=== PATIENT | male | born 1960 | race Caucasian/White ===

== ENCOUNTER 2021-07-20 11:32 | Day surgery (SDC) | payer MEDICAID ==
[2021-07-20] VITALS (9 sets, daily range): BP systolic 135–168; BP diastolic 84–108
[~2021-07-20] VITALS: Ht 188 cm; Wt 92.3 kg
[2021-07-20] MEDS ORDERED: nitroGLYCERIN 0.4mg SUBLingual tab SL PRN (11:55)
[2021-07-20] MEDS ORDERED: diphenhydrAMINE 25mg capsule PO PRN (12:00)
[2021-07-20] MEDS ORDERED: normal saline 1,000 ML IV SCH (12:00)
[2021-07-20] MEDS ORDERED: LORazepam 0.5 MG tablet PO PRN (12:00)
[2021-07-20] MEDS ORDERED: IBUP-1986 PO (12:39)
[2021-07-20] MEDS ORDERED: Vitamin B12 (12:39)
[2021-07-20] MEDS ORDERED: SILD100T70 PO (12:39)
[2021-07-20] MEDS ORDERED: GEMF600T89 PO (12:39)
[2021-07-20] MEDS ORDERED: DILT120T3 PO (12:39)
[2021-07-20] MEDS ORDERED: METF-1203 PO (12:39)
[2021-07-20] MEDS ORDERED: insulin Lispro (HumaLOG) vial - multi-dose SQ SCH (13:15)
[2021-07-20] MEDS ORDERED: MESSAGE TO PHARMACY PO ONE (13:15)
[2021-07-20] MEDS ORDERED: DEXTROSE 15 GM of carb/4 tabs (each vial/BOTTLE has 4 tablets) PO PRN ×2 (13:15)
[2021-07-20] MEDS ORDERED: dextrose 50%-water 50ml dispensing syringe IV PRN ×2 (13:15)
[2021-07-20] MEDS ORDERED: glucagon, human recombinant 1mg kit SUBCUT PRN (13:15)
[2021-07-20] MEDS ORDERED: iohexol 350MG/ML 100ml bottle IV ONE (14:31)
[2021-07-20] MEDS ORDERED: iohexol 350 MG/ML 50ML vial IV ONE (14:31)
[2021-07-20] MEDS ORDERED: fentaNYL/PF 50MCG/1 ML 2ML syringe ONE (14:31)
[2021-07-20] MEDS ORDERED: LIDOcaine 1% (10mg/ml)w/preservative inj. 20ml MDV ONE (14:31)
[2021-07-20] MEDS ORDERED: midazolam 1 mg/ML 2ml injection ONE ×2 (14:31→15:18)
[2021-07-20] MEDS ORDERED: insulin glargine (Lantus) pen - multi-dose SQ SCH (21:00)
== END 2021-07-20 20:55 | disposition home or self-care (01) ==
LOC: SSTAY O 11:32
PROVIDERS: ATTEND Internal Medicine Cardiovascular Disease
DX: R94.39 Abnormal result of other cardiovascular function study (principal); I25.10 Atherosclerotic heart disease of native coronary artery without angina pectoris; I10 Essential (primary) hypertension; E11.9 Type 2 diabetes mellitus without complications; M54.30 Sciatica, unspecified side; J44.9 Chronic obstructive pulmonary disease, unspecified; Z86.16 Personal history of COVID-19; Z79.899 Other long term (current) drug therapy; Z79.84 Long term (current) use of oral hypoglycemic drugs; Z88.2 Allergy status to sulfonamides
CPT/HCPCS: 82948; 93005; 93458; 99152; C1760; C1769; J1644; J1815; J2250; J3010; J3490; Q0163; Q9967; 99153; A4620; A6258

== ENCOUNTER 2021-08-01 05:30 | Inpatient (IN) | payer MEDICAID ==
[2021-07-27 13:39] LABS: BASOPHILS % (AUTO) 0.6 % (0-1); EOSINOPHILS # (AUTO) 0.1 X10'3 (0-0.9); EOSINOPHILS % (AUTO) 0.7 % (0-6); LYMPHOCYTES # (AUTO) 1.1 X10'3 (1.1-4.8); LYMPHOCYTES % (AUTO) 15.8 % (21-51); MEAN CORPUSCULAR HEMOGLOBIN 32.4 PG (27.0-31.0); MEAN CORPUSCULAR HGB CONC 34.2 g/dL (33.0-36.5); MEAN CORPUSCULAR VOLUME 94.8 FL (78-98); MEAN PLATELET VOLUME 7.7 FL (7.4-10.4); MONOCYTES # (AUTO) 0.7 X10'3 (0-0.9); MONOCYTES % (AUTO) 9.2 % (2-12); NEUTROPHILS # (AUTO) 5.3 X10'3 (1.8-7.7); NEUTROPHILS % (AUTO) 73.7 % (42-75); PRE OP HEMATOCRIT 47.5 % (42.0-52.0); PRE OP HEMOGLOBIN 16.3 g/dL (14.0-17.9); PRE OP PLATELET COUNT 307 X10'3 (140-440); RED BLOOD COUNT 5.01 X10'6 (4.70-6.10); RED CELL DISTRIBUTION WIDTH 13.9 % (11.5-14.5)
[2021-07-27 13:47] LABS: CLARITY,URINE CLEAR (Clear); COLOR,URINE YELLOW (Yellow); GLUCOSE, URINE NEGATIVE (Neg); KETONES,URINE TRACE mg/dl (Neg); LEUKOCYTE ESTERASE ,URINE NEGATIVE (Neg); NITRITES, URINE NEGATIVE (Neg); OCCULT BLOOD,URINE NEGATIVE (Neg); PROTEIN,URINE TRACE mg/dl (Neg); UROBILINOGEN,URINE 0.2 E.U/dL (0.2-1.0)
[2021-07-27 13:48] LABS: UA COLLECTION TYPE CLN CATCH MIDSTREAM
[2021-07-27 13:53] LABS: PRE OP PROTIME 10.4 SECONDS (9.0-12.0)
[2021-07-27 13:54] LABS: HYALINE CASTS 0-3 /LPF (NEGATIVE); SQUAMOUS EPITHELIAL CELL,UR FEW /LPF (FEW)
[2021-07-27 13:55] LABS: BACTERIA,URINE FEW /HPF (Neg); RBC,URINE 0-2 /HPF (0-2); WBC,URINE 0-4 /HPF (0-4)
[2021-07-27 13:59] LABS: ALBUMIN 3.8 G/DL (3.4-5.0); ALKALINE PHOSPHATASE 87 IU/L (46-116); BLOOD UREA NITROGEN 11 MG/DL (7-18); CALCIUM 9.8 MG/DL (8.5-10.1); CHLORIDE 100 MMOL/L (99-107); PRE OP ALT 43 U/L (30-65); PRE OP ANION GAP 15 (8-16); PRE OP AST 24 U/L (10-37); PRE OP BILIRUB, TOTAL 0.5 MG/DL (0.0-1.0); PRE OP GLUCOSE 161 MG/DL (70-104); PRE OP POTASSIUM 3.6 MMOL/L (3.4-5.1); PRE OP SODIUM 135 MMOL/L (135-145); TOTAL CARBON DIOXIDE 20.2 MMOL/L (24-32); TOTAL PROTEIN 7.7 G/DL (6.4-8.2); eGFR 76 ML/MIN
[2021-07-27 17:16] LABS: HEMOGLOBIN A1C 6.9 % (4.5-6.2)
[2021-07-29 09:55] LABS: ABG BASE EXCESS -3.1 mmol/L (-2.0-2.0); ABG HCO3 19.5 mmol/L (22.0-26.0); ABG OXYGEN SATURATION 96.3 % (94-97); ABG PCO2 (T) 29.7 mmHg (35.0-48.0); ABG PO2 (T) 78.2 mmHg (75.0-100.0); ALLEN'S TEST POSITIVE; FMetHb 0.2 % (0.0-1.5); FO2Hb 95.1 % (94-97)
[~2021-08-01] VITALS: Ht 188 cm; Wt 92.2 kg
[2021-08-01] VITALS (21 sets, daily range): BP systolic 103–190; BP diastolic 61–105
[~2021-08-01 05:30] MED LIST: DILT120T3 PO; GEMF600T89 PO; IBUP-1986 PO; LORazepam 2 mg/ml vial IV PRN; METF-1203 PO; SILD100T70 PO; Vitamin B12; cefazolin/dext.iso 2gm/50ml IV ONE; famotidine 20mg tablet PO ONE; mupirocin 2% nasal ointment 1gm UD NS ONE; ringers solution, lacted 1,000 ML IV SCH; vancomycin 1,500 MG in NS 300ml IV soln IV ONE
[2021-08-01] MEDS: insulin regular, human inj. 100 UNITS in normal saline 100ml IV IV SCH ×2 (05:30→12:39)
[2021-08-01] MEDS ORDERED: ceFAZolin 1000mg inj ONE ×2 (05:43)
[2021-08-01] MEDS ORDERED: epiNEPHrine 1 mg/ml inj ONE (05:43)
--- NOTE | 2021-08-01 06:00 | NUR ---
PATIENT PREPPED FOR SURGERY, ANXIOUS, NO FAMILY MEMBERS WITH PATIENT. 16 G IV STARTED IN LEFT HAND WITHOUT DIFFICULTY. PATIENT SHAVED IN THE NORMAL FASHION BY JESS DATA COMPILER. 2 LARGE CIRCULAR WOUNDS NOTED ON LEFT KNEE AREA AND 2 ABRASIONS NOTED ON LEFT HAND. PT STATES HE GOT THESES FROM A FALL. PT NEEDS TO HAVE BACK SURGERY AND IS OFF BALANCE AT TIMES, WANTEN HEART PROCEDURE COMPLETED FIRST PRIOR TO BACK SURGERY. PT INSTRUCTED TO NOTIFY RN IF HE NEEDED TO GET UP TO THE BATHROOM PRIOR TO SURGERY
[2021-08-01] MEDS ORDERED: heparin 1,000 units/ml 10ml inj ONE (07:38)
[2021-08-01] MEDS ORDERED: nitroGLYCERIN in D5W 50mg/250ml (Tridil) infusion IV ONE (07:38)
[2021-08-01] MEDS ORDERED: sevoflurane 250ml liquid IH ONE (07:38)
[2021-08-01] MEDS ORDERED: protamine sulf. 10mg/ml inj. IV ONE (07:38)
[2021-08-01] MEDS ORDERED: aminocaproic acid 250 MG/1 ML inj. ONE (07:38)
[2021-08-01] MEDS ORDERED: NORepinephrine 8 MG in NS 250 ML BAG (32 mcg/ml) IV ONE (07:38)
[2021-08-01] MEDS ORDERED: MIDAZolam 1 MG/ML 5ML VIAL ONE (07:43)
[2021-08-01] MEDS ORDERED: SUFENTANIL CITRATE 50 MCG/ML 2ml ampule IV ONE (07:43)
[2021-08-01] MEDS ORDERED: heparin 10,000 units/1 ML INJ ONE ×3 (08:00)
[2021-08-01] MEDS ORDERED: methylPREDNISolone sod succ 1000mg vial ONE (08:00)
[2021-08-01] MEDS ORDERED: papaverine 30 mg/ml 2ml inj. ONE ×2 (08:00)
[2021-08-01] MEDS ORDERED: heparin 10,000 units/1 ML INJ IR ONE (08:00)
[2021-08-01] MEDS ORDERED: papaverine 30 mg/ml 2ml inj. IA ONE (08:00)
[2021-08-01 08:29] LABS: ABG BASE EXCESS -0.7 mmol/L (-2.0-2.0); ABG PO2 386.6 mmHg (75.0-100.0); CL (ABG) 103 mmol/L (98-110); FCOHb 0.9 % (0.0-3.9); FO2Hb 99.1 % (94-97); GLUCOSE (ABG) 174 mg/dl (70-105); IONIZED CA (ABG) 1.19 mmol/L (1.10-1.43); K (ABG) 3.3 mmol/L (3.5-5.0); TOTAL HEMOGLOBIN 14.3 G/dl (14.0-18.0)
[2021-08-01 09:01] LABS: ABG BASE EXCESS -2.9 mmol/L (-2.0-2.0); ABG HCO3 24.9 mmol/L (22.0-26.0); ABG OXYGEN SATURATION 89.8 % (94-97); ABG PO2 63.9 mmHg (75.0-100.0); CL (ABG) 103 mmol/L (98-110); FCOHb 0.8 % (0.0-3.9); FO2Hb 89.1 % (94-97); GLUCOSE (ABG) 149 mg/dl (70-105); IONIZED CA (ABG) 1.15 mmol/L (1.10-1.43); K (ABG) 3.3 mmol/L (3.5-5.0); TOTAL HEMOGLOBIN 13.8 G/dl (14.0-18.0)
[2021-08-01 09:03] LABS: ABG BASE EXCESS -2.9 mmol/L (-2.0-2.0); ABG HCO3 24.9 mmol/L (22.0-26.0); ABG OXYGEN SATURATION 89.8 % (94-97); ABG PO2 63.9 mmHg (75.0-100.0); CL (ABG) 103 mmol/L (98-110); FCOHb 0.8 % (0.0-3.9); FO2Hb 89.1 % (94-97); GLUCOSE (ABG) 149 mg/dl (70-105); IONIZED CA (ABG) 1.15 mmol/L (1.10-1.43); K (ABG) 3.3 mmol/L (3.5-5.0); TOTAL HEMOGLOBIN 13.8 G/dl (14.0-18.0)
[2021-08-01 09:48] LABS: ABG BASE EXCESS VENOUS -2.4 mmol/L (-2.0 - 2.0); ABG HCO3 VENOUS 23.6 mmol/L (21.0-28.0); ABG PCO2 VENOUS 45.4 mmHg (41.0-54.0); ABG PO2 VENOUS 58.9 mmHg (25.0-35.0); CL (ABG) 106 mmol/L (98-110); FCOHb VENOUS 0.4 %; FHHb VENOUS 11.4 %; FMetHb VENOUS 0.3 % (0.0 - 0.5); FO2Hb VENOUS 87.9 %; GLUCOSE (ABG) 129 mg/dl (70-105); IONIZED CA (ABG) 1.13 mmol/L (1.10-1.43); K (ABG) 3.2 mmol/L (3.5-5.0); TOTAL HEMOGLOBIN 12.7 G/dl (14.0-18.0)
[2021-08-01] MEDS ORDERED: mineral oil 133ml enema RC PRN (10:00)
[2021-08-01] MEDS ORDERED: magnesium hydroxide 30ml (MOM) UD suspension PO PRN (10:00)
[2021-08-01] MEDS ORDERED: acetaminophen 325mg tablet PO PRN ×2 (10:00)
[2021-08-01] MEDS ORDERED: Insulin Reg/NS 100units/100mL 100 ML IV SCH (10:00)
[2021-08-01] MEDS ORDERED: sodium chloride 0.45% 1,000 ML IV SCH (10:00)
[2021-08-01] MEDS ORDERED: magnesium citrate 296ml oral solution PO PRN (10:00)
[2021-08-01] MEDS ORDERED: metoclopramide 5 mg/ml inj IV PRN (10:00)
[2021-08-01] MEDS ORDERED: morphine 4 MG/ML inj SYRINge IV PRN (10:00)
[2021-08-01] MEDS ORDERED: sodium phosphate inj. 15 MMOL in dextrose 5%-water 250 ML IV PRN (10:00)
[2021-08-01] MEDS ORDERED: nitroGLYCERIN-Tridil 50MG/D5W 250 ML IV SCH (10:00)
[2021-08-01] MEDS ORDERED: dextrose 50%-water 50ml dispensing syringe IV PRN (10:00)
[2021-08-01] MEDS ORDERED: sodium phosphate inj. 30 MMOL in dextrose 5%-water 250 ML IV PRN (10:00)
[2021-08-01] MEDS ORDERED: magnesium 4gm in 100ml NS 100 ML IV PRN (10:00)
[2021-08-01] MEDS ORDERED: niCARDipine-NS 40mg/200ml IVPB 200 ML IV PRN (10:00)
[2021-08-01] MEDS ORDERED: HYDROcodone/acetaminophen 10/325mg tab PO PRN (10:00)
[2021-08-01] MEDS ORDERED: bisacodyl 10mg suppository rectal RC PRN (10:00)
[2021-08-01] MEDS ORDERED: potassium CL 10mEq/100ml bag 100 ML IV PRN (10:00)
[2021-08-01] MEDS ORDERED: insulin glargine (Lantus) pen - multi-dose SQ PRN (10:00)
[2021-08-01] MEDS ORDERED: ondansetron/PF 4mg/2ml inj IV PRN (10:00)
[2021-08-01] MEDS ORDERED: Neutra Phos packet PO PRN (10:00)
[2021-08-01 10:09] LABS: ACTIVATED CLOTTING TIME 128 SEC (101-148)
[2021-08-01] MEDS ORDERED: metoprolol tartrate 1mg/ml inj IV ONE (10:30)
[2021-08-01] MEDS ORDERED: rocuronium 10mg/ml inj IV ONE ×3 (10:32)
[2021-08-01] MEDS ORDERED: propofol inj 20 ML IV ONE (10:32)
[2021-08-01 10:41] LABS: ACT @ 1.70 U 249 SEC (193-297); ACT @ 2.84 U 353 SEC (260-420); BASELINE ACT 144 SEC (101-148); PATIENT WEIGHT 91.0k KG
[2021-08-01 10:45] LABS: ABG BASE EXCESS -3.4 mmol/L (-2.0-2.0); ABG HCO3 21.6 mmol/L (22.0-26.0); ABG PCO2 (T) 34.2 mmHg (35.0-48.0); ABG PO2 (T) 206.1 mmHg (75.0-100.0); FCOHb 0.3 % (0.0-3.9); FMetHb 0.5 % (0.0-1.5); FO2Hb 98.2 % (94-97); PATIENT TEMPERATURE 34.2; PEEP 5 cm H2O; RESPIRATORY RATE 12 b/min; TIDAL VOLUME 600 mL; TOTAL HEMOGLOBIN 13.3 G/dl (14.0-18.0)
[2021-08-01 10:49] LABS: BASOPHILS % (AUTO) 0.4 % (0-1); EOSINOPHILS # (AUTO) 0.2 X10'3 (0-0.9); EOSINOPHILS % (AUTO) 2.1 % (0-6); HEMATOCRIT 36.3 % (42.0-52.0); HEMOGLOBIN 12.7 g/dl (14.0-17.9); LYMPHOCYTES # (AUTO) 1.3 X10'3 (1.1-4.8); LYMPHOCYTES % (AUTO) 17.2 % (21-51); MEAN CORPUSCULAR HEMOGLOBIN 33.6 PG (27.0-31.0); MEAN CORPUSCULAR VOLUME 95.9 FL (78-98); MEAN PLATELET VOLUME 7.3 FL (7.4-10.4); MONOCYTES # (AUTO) 0.3 X10'3 (0-0.9); MONOCYTES % (AUTO) 4.4 % (2-12); NEUTROPHILS # (AUTO) 5.8 X10'3 (1.8-7.7); NEUTROPHILS % (AUTO) 75.9 % (42-75); PLATELET COUNT 199 X10'3 (140-440); RED BLOOD COUNT 3.79 X10'6 (4.70-6.10); WHITE BLOOD COUNT 7.7 X10'3 (4.5-11.0)
[2021-08-01 10:57] LABS: APTT 26 SECONDS (22-32)
[2021-08-01 11:00] LABS: ALANINE AMINOTRANSFERASE 36 U/L (12-78); ALBUMIN 3.1 G/DL (3.4-5.0); ALBUMIN/GLOBULIN RATIO 1.2 (1.1-1.5); ALKALINE PHOSPHATASE 54 IU/L (46-116); ANION GAP 11 (8-16); ASPARTATE AMINO TRANSFERASE 21 U/L (10-37); BILIRUBIN,TOTAL 0.4 MG/DL (0.1-1.0); BLOOD UREA NITROGEN 8 MG/DL (7-18); BUN/CREATININE RATIO 12.5 (5.4-32.0); CALCIUM 7.9 MG/DL (8.5-10.1); CHLORIDE 106 MMOL/L (99-107); CREATININE 0.64 MG/DL (0.60-1.10); GLUCOSE 130 MG/DL (70-104); MAGNESIUM 1.7 MG/DL (1.5-2.4); PHOSPHORUS 3.7 MG/DL (2.3-4.5); SODIUM 141 MMOL/L (135-145); TOTAL CARBON DIOXIDE 23.9 MMOL/L (24-32); TOTAL PROTEIN 5.6 G/DL (6.4-8.2); eGFR > 90 ML/MIN
[2021-08-01 11:02] LABS: POTASSIUM 2.9 MMOL/L (3.5-5.1)
[2021-08-01] MEDS: potassium Cl 20mEq/100mL bag 100 ML IV PRN ×6 (11:12→19:00)
[2021-08-01] MEDS: gabapentin 300mg capsule PO SCH ×2 (11:56→20:48)
[2021-08-01 12:06] LABS: ABG BASE EXCESS -4.4 mmol/L (-2.0-2.0); ABG HCO3 21.2 mmol/L (22.0-26.0); ABG OXYGEN SATURATION 97.7 % (94-97); ABG PCO2 (T) 37.2 mmHg (35.0-48.0); ABG PO2 (T) 100.3 mmHg (75.0-100.0); FCOHb 0.4 % (0.0-3.9); FMetHb 0.2 % (0.0-1.5); FO2Hb 97.1 % (94-97); PATIENT TEMPERATURE 34.8; PEEP 5 cm H2O; TIDAL VOLUME 654 mL; TOTAL HEMOGLOBIN 13.7 G/dl (14.0-18.0)
[2021-08-01] MEDS: albumin (Human) 5% 250ml 250 ML IV PRN (12:11)
[2021-08-01] MEDS: morphine 2 MG/ML inj. syringe IV PRN ×2 (12:24→18:00)
[2021-08-01] MEDS: ketorolac tromethamine 15mg/ml inj. IV SCH ×2 (14:12→20:47)
[2021-08-01] MEDS: magnesium 2GM in 50ml NS 50 ML IV PRN (14:51)
[2021-08-01] MEDS: ceFAZolin/D5W- 1GM premix 50 ML IV SCH ×2 (15:22→23:58)
[2021-08-01 17:13] LABS: BASOPHILS % (AUTO) 0.2 % (0-1); EOSINOPHILS % (AUTO) 0 % (0-6); HEMATOCRIT 34.9 % (42.0-52.0); HEMOGLOBIN 12.3 g/dl (14.0-17.9); LYMPHOCYTES # (AUTO) 0.6 X10'3 (1.1-4.8); LYMPHOCYTES % (AUTO) 6.3 % (21-51); MEAN CORPUSCULAR HEMOGLOBIN 33.8 PG (27.0-31.0); MEAN CORPUSCULAR HGB CONC 35.1 g/dL (33.0-36.5); MEAN CORPUSCULAR VOLUME 96.3 FL (78-98); MEAN PLATELET VOLUME 7.3 FL (7.4-10.4); MONOCYTES # (AUTO) 0.7 X10'3 (0-0.9); MONOCYTES % (AUTO) 6.8 % (2-12); NEUTROPHILS # (AUTO) 8.6 X10'3 (1.8-7.7); NEUTROPHILS % (AUTO) 86.7 % (42-75); PLATELET COUNT 227 X10'3 (140-440); RED BLOOD COUNT 3.62 X10'6 (4.70-6.10); RED CELL DISTRIBUTION WIDTH 13.9 % (11.5-14.5); WHITE BLOOD COUNT 9.9 X10'3 (4.5-11.0)
[2021-08-01 17:26] LABS: ALBUMIN 3.5 G/DL (3.4-5.0); ANION GAP 6 (8-16); BLOOD UREA NITROGEN 5 MG/DL (7-18); BUN/CREATININE RATIO 8.3 (5.4-32.0); CALCIUM 7.6 MG/DL (8.5-10.1); CHLORIDE 106 MMOL/L (99-107); GLUCOSE 116 MG/DL (70-104); MAGNESIUM 2.8 MG/DL (1.5-2.4); POTASSIUM 3.9 MMOL/L (3.5-5.1); SODIUM 136 MMOL/L (135-145); TOTAL CARBON DIOXIDE 24.1 MMOL/L (24-32); eGFR > 90 ML/MIN
--- NOTE | 2021-08-01 18:17 | NUR ---
Problems reprioritized. Patient report given, questions answered & plan of care reviewed with Jaclyn GALICIA.
--- NOTE | 2021-08-01 18:30 | NUR ---
Patient in room ICU 2042. Myself and Nadja GALICIA have received report from Jackie GALICIA and had the opportunity to ask questions and assume patient care.
--- NOTE | 2021-08-01 19:43 | NUR ---
Radial arterial line dislodged by patient. Pressure dressing applied after hemostasis achieved via manual hold per protocol. Patient awake and alert, able to move all extremities, denies pain or numbness in R hand. See chart for hemodynamics and output. Will continue to monitor.
[2021-08-01] MEDS: vancomycin/NS 1 GM ADD-VANTAGE 250 ML IV SCH (20:47)
[2021-08-01] MEDS: mupirocin 2% nasal ointment 1gm UD NS SCH (20:48)
[2021-08-01] MEDS: sennosides/docusate sodium tablet PO SCH (20:48)
[2021-08-01] MEDS: atorvastatin 10mg tablet PO SCH (20:48)
[2021-08-01] MEDS: HYDROcodone/acetaminophen 10/325mg tab PO PRN (23:38)
[2021-08-02] VITALS (24 sets, daily range): BP systolic 94–160; BP diastolic 55–95
[2021-08-02] MEDS: ketorolac tromethamine 15mg/ml inj. IV SCH ×2 (01:57→08:37)
[2021-08-02 02:33] LABS: BASOPHILS % (AUTO) 0.2 % (0-1); EOSINOPHILS % (AUTO) 0.5 % (0-6); HEMOGLOBIN 11.6 g/dl (14.0-17.9); LYMPHOCYTES # (AUTO) 0.9 X10'3 (1.1-4.8); LYMPHOCYTES % (AUTO) 15.2 % (21-51); MEAN CORPUSCULAR HEMOGLOBIN 32.8 PG (27.0-31.0); MEAN CORPUSCULAR HGB CONC 34.2 g/dL (33.0-36.5); MEAN CORPUSCULAR VOLUME 96.1 FL (78-98); MEAN PLATELET VOLUME 7.5 FL (7.4-10.4); MONOCYTES # (AUTO) 0.4 X10'3 (0-0.9); MONOCYTES % (AUTO) 7.8 % (2-12); NEUTROPHILS # (AUTO) 4.3 X10'3 (1.8-7.7); NEUTROPHILS % (AUTO) 76.3 % (42-75); PLATELET COUNT 203 X10'3 (140-440); RED BLOOD COUNT 3.54 X10'6 (4.70-6.10); RED CELL DISTRIBUTION WIDTH 13.7 % (11.5-14.5); WHITE BLOOD COUNT 5.6 X10'3 (4.5-11.0)
[2021-08-02] MEDS: albumin (Human) 5% 250ml 250 ML IV PRN ×2 (02:33→03:32)
[2021-08-02 02:48] LABS: ALANINE AMINOTRANSFERASE 39 U/L (12-78); ALBUMIN 3.1 G/DL (3.4-5.0); ALBUMIN/GLOBULIN RATIO 1.2 (1.1-1.5); ALKALINE PHOSPHATASE 54 IU/L (46-116); ANION GAP 9 (8-16); ASPARTATE AMINO TRANSFERASE 28 U/L (10-37); BILIRUBIN,TOTAL 0.4 MG/DL (0.1-1.0); BLOOD UREA NITROGEN 5 MG/DL (7-18); BUN/CREATININE RATIO 6.8 (5.4-32.0); CALCIUM 7.9 MG/DL (8.5-10.1); CHLORIDE 102 MMOL/L (99-107); CREATININE 0.74 MG/DL (0.60-1.10); GLUCOSE 123 MG/DL (70-104); PHOSPHORUS 2.2 MG/DL (2.3-4.5); POTASSIUM 3.6 MMOL/L (3.5-5.1); SODIUM 136 MMOL/L (135-145); TOTAL CARBON DIOXIDE 25.2 MMOL/L (24-32); TOTAL PROTEIN 5.6 G/DL (6.4-8.2); eGFR > 90 ML/MIN
[2021-08-02 03:06] LABS: MAGNESIUM 2.4 MG/DL (1.5-2.4)
--- NOTE | 2021-08-02 03:30 | NUR ---
patients blood sugar 65, D50 given per protocol and rechecked in 15 minutes and it came up to 112
[2021-08-02] MEDS: potassium Cl 20mEq/100mL bag 100 ML IV PRN ×2 (03:32→04:47)
[2021-08-02] MEDS: magnesium 2GM in 50ml NS 50 ML IV PRN ×2 (04:09→23:41)
--- NOTE | 2021-08-02 06:21 | NUR ---
Problems reprioritized. Patient report given, questions answered & plan of care reviewed with Jackie GALICIA. Cristobal documentation: I have reviewed and agree with all interventions, assessments performed and documented by Nadja Lopez Medication Administration: For this medication-pass time frame, all medication were reviewed, dispensed, administered and documented per hospital policy by Nadja GALICIA . .
--- NOTE | 2021-08-02 06:49 | NUR ---
Patient in room ICU 2042. I have received report from Jaclyn GALICIA and Nadja RN and had the opportunity to ask questions and assume patient care.
[2021-08-02] MEDS ORDERED: metoprolol tartrate 12.5mg (1/2 tablet) PO SCH (08:00)
--- NOTE | 2021-08-02 08:00 | NUR ---
Dr. Liriano by to round on patient, ordered to D/C swan and isolate wires, Art line was already D/C on Noc shift 08/01/21 as patient pulled it out. Once line d/C and wires isolated, with assistance of another RN patient was ambulated to chair with no complications. Vital signs remained stable, patient took breakfast sitting in bedside recliner
[2021-08-02] MEDS: vancomycin/NS 1 GM ADD-VANTAGE 250 ML IV SCH ×2 (08:35→20:48)
[2021-08-02] MEDS: ceFAZolin/D5W- 1GM premix 50 ML IV SCH ×3 (08:35→23:30)
[2021-08-02] MEDS: aspirin 325mg tablet, delayed-release (Ecotrin) PO SCH (08:36)
[2021-08-02] MEDS: mupirocin 2% nasal ointment 1gm UD NS SCH ×2 (08:36→20:46)
[2021-08-02] MEDS: sennosides/docusate sodium tablet PO SCH ×2 (08:36→20:47)
[2021-08-02] MEDS: gabapentin 300mg capsule PO SCH ×3 (08:36→20:46)
--- NOTE | 2021-08-02 11:40 | NUR ---
Patients parents bedside to visit, updated on his progress and answered all questions
--- NOTE | 2021-08-02 12:59 | NUR ---
walked patient 600ft vital signs stable tolerated well, back to room and up to chair for lunch.
--- NOTE | 2021-08-02 17:27 | NUR ---
Ambulated patient with assistance of ICU Aide, Chest tubes and asencio secured. Patient placed on portable monitor, frontwheel waker used for stability. We made two full laps around the ICU, no complaints of chest pain or shortness of breath
[2021-08-02] MEDS ORDERED: metoprolol tartrate 1mg/ml inj IV ONE (17:50)
--- NOTE | 2021-08-02 18:15 | NUR ---
Problems reprioritized. Patient report given, questions answered & plan of care reviewed with Jaclyn GALICIA and Nadja GALICIA.
--- NOTE | 2021-08-02 18:17 | NUR ---
Patient in room ICU 2042. I have received report from Jackie GALICIA with Jaclyn GALICIA and had the opportunity to ask questions and assume patient care.
--- NOTE | 2021-08-02 19:30 | NUR ---
patient ambulated with front wheel walker while maintaining sternal precautions, all chest tubes and asencio secured, patient placed on portable monitor and walked one lap around the unit and tolerated well. No complaints of chest pain or shortness or breath.
[2021-08-02] MEDS: atorvastatin 10mg tablet PO SCH (20:46)
[2021-08-02] MEDS: metoprolol tartrate 25mg tablet PO SCH (20:47)
[2021-08-02] MEDS: HYDROcodone/acetaminophen 10/325mg tab PO PRN (20:48)
[2021-08-02 21:47] LABS: MAGNESIUM 2.2 MG/DL (1.5-2.4); PHOSPHORUS 2.5 MG/DL (2.3-4.5); POTASSIUM 3.9 MMOL/L (3.5-5.1)
[2021-08-02] MEDS: potassium Cl 20 mEq SR tablet PO PRN (23:41)
[2021-08-03] VITALS (17 sets, daily range): BP systolic 93–134; BP diastolic 62–96
[2021-08-03] MEDS: HYDROcodone/acetaminophen 10/325mg tab PO PRN ×2 (01:06→06:02)
[2021-08-03 03:37] LABS: ANION GAP 9 (8-16); BLOOD UREA NITROGEN 5 MG/DL (7-18); BUN/CREATININE RATIO 6.8 (5.4-32.0); CALCIUM 8.2 MG/DL (8.5-10.1); CHLORIDE 103 MMOL/L (99-107); CREATININE 0.73 MG/DL (0.60-1.10); GLUCOSE 130 MG/DL (70-104); MAGNESIUM 2.8 MG/DL (1.5-2.4); PHOSPHORUS 3.1 MG/DL (2.3-4.5); POTASSIUM 3.9 MMOL/L (3.5-5.1); SODIUM 138 MMOL/L (135-145); eGFR > 90 ML/MIN
[2021-08-03 03:39] LABS: BASOPHILS % (AUTO) 0.5 % (0-1); EOSINOPHILS # (AUTO) 0.1 X10'3 (0-0.9); EOSINOPHILS % (AUTO) 0.9 % (0-6); HEMATOCRIT 31.9 % (42.0-52.0); HEMOGLOBIN 10.9 g/dl (14.0-17.9); LYMPHOCYTES # (AUTO) 1.4 X10'3 (1.1-4.8); LYMPHOCYTES % (AUTO) 19.4 % (21-51); MEAN CORPUSCULAR HGB CONC 34.2 g/dL (33.0-36.5); MEAN CORPUSCULAR VOLUME 96.3 FL (78-98); MEAN PLATELET VOLUME 7.9 FL (7.4-10.4); MONOCYTES # (AUTO) 0.8 X10'3 (0-0.9); MONOCYTES % (AUTO) 10.6 % (2-12); NEUTROPHILS % (AUTO) 68.6 % (42-75); PLATELET COUNT 164 X10'3 (140-440); RED BLOOD COUNT 3.31 X10'6 (4.70-6.10); RED CELL DISTRIBUTION WIDTH 13.9 % (11.5-14.5); WHITE BLOOD COUNT 7.3 X10'3 (4.5-11.0)
[2021-08-03] MEDS: potassium Cl 20 mEq SR tablet PO PRN (05:18)
--- NOTE | 2021-08-03 06:15 | NUR ---
Problems reprioritized. Patient report given to imelda RN with Jaclyn RN, questions answered & plan of care reviewed with .
[2021-08-03] MEDS: sennosides/docusate sodium tablet PO SCH ×2 (07:43→21:23)
[2021-08-03] MEDS: pantoprazole 40mg Tablet.DR PO SCH (07:43)
[2021-08-03] MEDS: aspirin 325mg tablet, delayed-release (Ecotrin) PO SCH (07:43)
[2021-08-03] MEDS: gabapentin 300mg capsule PO SCH (07:43)
[2021-08-03] MEDS: metoprolol tartrate 25mg tablet PO SCH (07:44)
[2021-08-03] MEDS: mupirocin 2% nasal ointment 1gm UD NS SCH (08:00)
--- NOTE | 2021-08-03 08:30 | NUR ---
asencio & cvl dc'd per order. pressure held to cvl site no bleeding observed. dressing applied
[2021-08-03] MEDS: JUVEN Smoothie Arginine/Glut./Ca2+Bmb (Juven 19.3pkt) 240ml cup PO SCH ×2 (12:30→17:55)
--- NOTE | 2021-08-03 13:27 | NUR ---
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 Pt/SO seen at bedside by RD for written/verbal high protein/HH diet eds w/ RD contact information provided. Pt is agreeable to strawberry-banana Wade jorge LOZANO for wound healing; PA notified. RD encouraged pt/SO to contact dietitian's office if further questions/concerns. Addendum: 08/03/21 at [address] Amended: Links added.
--- NOTE | 2021-08-03 13:27 | NUR ---
pt transferred to 3019 via wheelchair with all belongings and tele pack in place. family at bedside report called to Promise GALICIA
--- NOTE | 2021-08-03 13:30 | NUR ---
pt received on unit. Pt alert and oriented x 4. No pain. VSS. CT x [address] #2 1440ml. Pacer wires in place. Belongings in room. Will continue to monitor.
--- NOTE | 2021-08-03 15:36 | NUR ---
Two nurse skin assessment performed upon arrival to unit. Assessed with FRIDA Evans.
--- NOTE | 2021-08-03 17:56 | NUR ---
Orientee documentation: I have reviewed and agree with all interventions, assessments performed and documented by MARILYNN Mejia II.
--- NOTE | 2021-08-03 18:30 | NUR ---
Problems reprioritized. Patient report given, questions answered & plan of care reviewed with FRIDA Rodriguez.
[2021-08-03] MEDS: potassium Cl 20 mEq SR tablet PO SCH (19:17)
[2021-08-03] MEDS: magnesium Cl slow-release 64mg tablet PO SCH (20:00)
[2021-08-03] MEDS: metoprolol tartrate 50mg tablet PO SCH (21:23)
[2021-08-03] MEDS: atorvastatin 10mg tablet PO SCH (21:23)
[2021-08-04 02:00] VITALS: BP 99/70
[2021-08-04 06:00] VITALS: BP_SYST 120; BP_SYST 140; BP_DIAS 87; BP_DIAS 88
[2021-08-04 06:03] LABS: BASOPHILS % (AUTO) 0.2 % (0-1); EOSINOPHILS # (AUTO) 0.1 X10'3 (0-0.9); EOSINOPHILS % (AUTO) 1.7 % (0-6); HEMATOCRIT 31.7 % (42.0-52.0); HEMOGLOBIN 10.9 g/dl (14.0-17.9); LYMPHOCYTES % (AUTO) 11.4 % (21-51); MEAN CORPUSCULAR HEMOGLOBIN 33.2 PG (27.0-31.0); MEAN CORPUSCULAR HGB CONC 34.5 g/dL (33.0-36.5); MEAN CORPUSCULAR VOLUME 96.2 FL (78-98); MEAN PLATELET VOLUME 8.1 FL (7.4-10.4); MONOCYTES # (AUTO) 0.8 X10'3 (0-0.9); MONOCYTES % (AUTO) 9.2 % (2-12); NEUTROPHILS % (AUTO) 77.5 % (42-75); PLATELET COUNT 191 X10'3 (140-440); RED BLOOD COUNT 3.29 X10'6 (4.70-6.10); RED CELL DISTRIBUTION WIDTH 13.6 % (11.5-14.5); WHITE BLOOD COUNT 9.1 X10'3 (4.5-11.0)
[2021-08-04 06:26] LABS: ALBUMIN 2.8 G/DL (3.4-5.0); BLOOD UREA NITROGEN 7 MG/DL (7-18); BUN/CREATININE RATIO 10.8 (5.4-32.0); CALCIUM 8.5 MG/DL (8.5-10.1); CHLORIDE 100 MMOL/L (99-107); CREATININE 0.65 MG/DL (0.60-1.10); GLUCOSE 132 MG/DL (70-104); POTASSIUM 3.5 MMOL/L (3.5-5.1); SODIUM 135 MMOL/L (135-145); eGFR > 90 ML/MIN
[2021-08-04 06:35] LABS: ANION GAP 12 (8-16); TOTAL CARBON DIOXIDE 22.8 MMOL/L (24-32)
[2021-08-04] MEDS: pantoprazole 40mg Tablet.DR PO SCH (07:09)
[2021-08-04] MEDS: aspirin 325mg tablet, delayed-release (Ecotrin) PO SCH (07:56)
[2021-08-04] MEDS: potassium Cl 20 mEq SR tablet PO SCH ×2 (07:57→20:49)
[2021-08-04] MEDS: sennosides/docusate sodium tablet PO SCH ×2 (07:57→20:42)
[2021-08-04] MEDS: metoprolol tartrate 50mg tablet PO SCH ×2 (07:58→20:43)
[2021-08-04] MEDS: magnesium Cl slow-release 64mg tablet PO SCH ×2 (09:15→20:42)
[2021-08-04] MEDS ORDERED: ASPI-1071 PO (10:53)
[2021-08-04] MEDS ORDERED: ATOR10TA PO (10:53)
[2021-08-04] MEDS ORDERED: HYDR-3972 PO (10:53)
[2021-08-04] MEDS ORDERED: METO50TA16 PO (10:53)
[2021-08-04 11:00] VITALS: BP 113/68
[2021-08-04] MEDS: JUVEN Smoothie Arginine/Glut./Ca2+Bmb (Juven 19.3pkt) 240ml cup PO SCH ×2 (12:30→17:30)
[2021-08-04 15:00] VITALS: BP 133/82
[2021-08-04 18:00] VITALS: BP 125/84
--- NOTE | 2021-08-04 18:18 | NUR ---
Problems reprioritized. Patient report given, questions answered & plan of care reviewed with Michael.
[2021-08-04] MEDS: atorvastatin 10mg tablet PO SCH (20:43)
[2021-08-04 22:00] VITALS: BP 120/85
[2021-08-05 02:00] VITALS: BP 140/82
[2021-08-05] MEDS: pantoprazole 40mg Tablet.DR PO SCH (07:30)
[2021-08-05 07:47] LABS: BASOPHILS % (AUTO) 0.5 % (0-1); EOSINOPHILS # (AUTO) 0.2 X10'3 (0-0.9); EOSINOPHILS % (AUTO) 3.6 % (0-6); HEMATOCRIT 33.4 % (42.0-52.0); HEMOGLOBIN 11.4 g/dl (14.0-17.9); LYMPHOCYTES # (AUTO) 1.2 X10'3 (1.1-4.8); LYMPHOCYTES % (AUTO) 17.3 % (21-51); MEAN CORPUSCULAR HEMOGLOBIN 33.3 PG (27.0-31.0); MEAN CORPUSCULAR HGB CONC 34.2 g/dL (33.0-36.5); MEAN CORPUSCULAR VOLUME 97.4 FL (78-98); MONOCYTES # (AUTO) 0.9 X10'3 (0-0.9); MONOCYTES % (AUTO) 13.1 % (2-12); NEUTROPHILS # (AUTO) 4.4 X10'3 (1.8-7.7); NEUTROPHILS % (AUTO) 65.5 % (42-75); PLATELET COUNT 279 X10'3 (140-440); RED BLOOD COUNT 3.43 X10'6 (4.70-6.10); RED CELL DISTRIBUTION WIDTH 13.6 % (11.5-14.5); WHITE BLOOD COUNT 6.8 X10'3 (4.5-11.0)
[2021-08-05 08:06] LABS: ALBUMIN 3.1 G/DL (3.4-5.0); ANION GAP 7 (8-16); BLOOD UREA NITROGEN 9 MG/DL (7-18); BUN/CREATININE RATIO 11.7 (5.4-32.0); CALCIUM 9.3 MG/DL (8.5-10.1); CHLORIDE 104 MMOL/L (99-107); CREATININE 0.77 MG/DL (0.60-1.10); GLUCOSE 128 MG/DL (70-104); POTASSIUM 4.1 MMOL/L (3.5-5.1); SODIUM 139 MMOL/L (135-145); TOTAL CARBON DIOXIDE 27.7 MMOL/L (24-32); eGFR > 90 ML/MIN
[2021-08-05] MEDS: potassium Cl 20 mEq SR tablet PO SCH (08:38)
[2021-08-05] MEDS: aspirin 325mg tablet, delayed-release (Ecotrin) PO SCH (08:38)
[2021-08-05 08:39] VITALS: BP_SYST 110
[2021-08-05] MEDS: sennosides/docusate sodium tablet PO SCH (08:39)
[2021-08-05] MEDS: metoprolol tartrate 50mg tablet PO SCH (08:39)
[2021-08-05] MEDS: magnesium Cl slow-release 64mg tablet PO SCH (08:39)
--- NOTE | 2021-08-05 10:56 | NUR ---
Patient IV taken out, educated on flutter valve and IS, aswered all questions from discharge packet
== END 2021-08-05 10:47 | disposition home or self-care (01) | DRG 166 ==
LOC: PAS IN 05:30 → ICU 2S 10:18 → PCU 3S 08-03 14:20
PROVIDERS: ADMIT Thoracic Surgery (Cardiothoracic Vascular Surgery); ATTEND Thoracic Surgery (Cardiothoracic Vascular Surgery)
PROC: 021009W Bypass Coronary Artery, One Artery from Aorta with Autologous Venous Tissue, Open Approach (ICD-10-PCS; 2021-08-01)
PROC: 06BQ4ZZ Excision of Left Saphenous Vein, Percutaneous Endoscopic Approach (ICD-10-PCS; 2021-08-01)
PROC: B24BZZ4 Ultrasonography of Heart with Aorta, Transesophageal (ICD-10-PCS; 2021-08-01)
PROC: 03HY32Z Insertion of Monitoring Device into Upper Artery, Percutaneous Approach (ICD-10-PCS; 2021-08-01)
PROC: 02100Z9 Bypass Coronary Artery, One Artery from Left Internal Mammary, Open Approach (ICD-10-PCS; principal; 2021-08-01 07:38)
DX: I25.10 Atherosclerotic heart disease of native coronary artery without angina pectoris (principal); E11.9 Type 2 diabetes mellitus without complications; Z20.822 Contact with and (suspected) exposure to COVID-19
CPT/HCPCS: 36415; 36600; 71045; 80048; 80053; 81001; 82330; 82435; 82803; 82947; 82948; 83036; 83735; 84100; 84132; 84295; 85018; 85025; 85347; 85610; 85730; 86885; 86900; 86901; 86920; 87081; 93005; 93312; 93325; 93880; 93971; 94002; 94010; 94760; 97116; 97161; 97530; A4618; A6258; A6449; A7000; A7048; C1751; G0378; J0171; J0690; J1644; J1815; J1885; J2060; J2250; J2270; J2440; J2704; J2720; J2930; J3370; J3475; J3480; J3490; J7030; J7040; J7050; J7060; J7120; P9045; U0003; U0005

== ENCOUNTER 2024-09-02 14:44 | Outpatient (CLI) | payer MEDICAID ==
[~2024-09-02 14:44] MED LIST changes: +ASPI-1071 PO; +ATOR10TA PO; -DILT120T3 PO; +HYDR-3972 PO; -LORazepam 2 mg/ml vial IV PRN; +METO50TA16 PO; -cefazolin/dext.iso 2gm/50ml IV ONE; -famotidine 20mg tablet PO ONE; -mupirocin 2% nasal ointment 1gm UD NS ONE; -ringers solution, lacted 1,000 ML IV SCH; -vancomycin 1,500 MG in NS 300ml IV soln IV ONE
--- NOTE | 2024-09-02 15:38 | ELECTROCARDIOGRAPH REPORT ---
[facility] Test Date: 2024-09-02 Test Time: 15:35:35 Pat Name: JESU FERNANDO Department: [facility]-PRE-OP Patient ID: [facility]-[id number] Room: Gender: M Facilities Plant Engineer: CATA : [id number] Requested By: BLAIRE OKEEFE Order Number: [id number] Reading MD: Dr. Cassi Stephenson Measurements Intervals [place] Rate: 90 P: 35 ME: 128 QRS: 69 QRSD: 94 T: 51 QT: 337 QTc: 413 Interpretive Statements Sinus rhythm Atrial premature complexes Electronically Signed On 09-03-2024 8:51:[address] Cassi Stephenson Please click the below link to view image of tracing.
[2024-09-02] MEDS ORDERED: LISI20TA28 PO (15:40)
[2024-09-02] MEDS ORDERED: ASPI-1475 PO (15:40)
[2024-09-02] MEDS ORDERED: ALBU18HF2 INH (15:40)
[2024-09-02] MEDS ORDERED: ATOR-2 PO (15:40)
[2024-09-02] MEDS ORDERED: METF-438 PO (15:40)
[2024-09-02] MEDS ORDERED: CYAN10007 IM (15:40)
[2024-09-02 15:49] LABS: BASOPHILS % (AUTO) 0.5 % (0-1); EOSINOPHILS # (AUTO) 0.2 X10'3 (0-0.9); LYMPHOCYTES # (AUTO) 1.2 X10'3 (1.1-4.8); LYMPHOCYTES % (AUTO) 15.3 % (21-51); MEAN CORPUSCULAR HEMOGLOBIN 32.2 PG (27.0-31.0); MEAN CORPUSCULAR HGB CONC 34.2 g/dL (33.0-36.5); MEAN PLATELET VOLUME 8.2 FL (7.4-10.4); MONOCYTES # (AUTO) 0.7 X10'3 (0-0.9); MONOCYTES % (AUTO) 8.8 % (2-12); NEUTROPHILS # (AUTO) 5.8 X10'3 (1.8-7.7); NEUTROPHILS % (AUTO) 73.4 % (42-75); PRE OP HEMOGLOBIN 15.7 g/dL (14.0-17.9); PRE OP PLATELET COUNT 269 X10'3 (140-440); RED BLOOD COUNT 4.89 X10'6 (4.70-6.10); RED CELL DISTRIBUTION WIDTH 14.1 % (11.5-14.5)
[2024-09-02 15:55] LABS: ALBUMIN 3.8 G/DL (3.4-5.0); ALBUMIN/GLOBULIN RATIO 1.2 (1.1-1.5); ALKALINE PHOSPHATASE 116 IU/L (46-116); BLOOD UREA NITROGEN 13 MG/DL (7-18); BUN/CREATININE RATIO 10.1 (10.0-20.0); CALCIUM 9.2 MG/DL (8.5-10.1); CHLORIDE 102 MMOL/L (99-107); CREATININE 1.29 MG/DL (0.60-1.10); PRE OP ALT 45 U/L (30-65); PRE OP ANION GAP 10 (8-16); PRE OP AST 31 U/L (10-37); PRE OP BILIRUB, TOTAL 0.5 MG/DL (0.0-1.0); PRE OP POTASSIUM 4.1 MMOL/L (3.4-5.1); PRE OP SODIUM 138 MMOL/L (135-145); TOTAL CARBON DIOXIDE 25.9 MMOL/L (24-32); TOTAL PROTEIN 7.1 G/DL (6.4-8.2); eGFR 56 ML/MIN
[2024-09-02 16:07] LABS: PRE OP GLUCOSE 213 MG/DL (70-104)
[2024-09-02 17:36] LABS: HEMOGLOBIN A1C 9.2 % (4.5-6.2)
== END 2024-09-02 23:59 | disposition home or self-care (01) ==
LOC: LAB 14:44 → EDSTATUS 09-23 09:15
PROVIDERS: ATTEND Surgery
DX: Z01.818 Encounter for other preprocedural examination (principal); K43.2 Incisional hernia without obstruction or gangrene; I49.1 Atrial premature depolarization; Z79.899 Other long term (current) drug therapy
CPT/HCPCS: 36415; 80053; 83036; 85025; 93005

== ENCOUNTER 2024-12-04 09:09 | Day surgery (SDC) | payer MEDICAID ==
[2024-11-27 14:15] LABS: MEAN PLATELET VOLUME 7.7 FL (7.4-10.4); PRE OP HEMATOCRIT 47.9 % (42.0-52.0); PRE OP HEMOGLOBIN 16.5 g/dL (14.0-17.9); PRE OP PLATELET COUNT 317 X10'3 (140-440); PRE OP WHITE BLOOD COUNT 7.3 10'3 (4.8-10.8); RED CELL DISTRIBUTION WIDTH 14.9 % (11.5-14.5)
[2024-11-27 14:33] LABS: CREATININE 1.58 MG/DL (0.60-1.10); PRE OP ALT 53 U/L (30-65); PRE OP ANION GAP 11 (8-16); PRE OP AST 34 U/L (10-37); PRE OP BILIRUB, TOTAL 0.7 MG/DL (0.0-1.0); PRE OP GLUCOSE 123 MG/DL (70-104); PRE OP POTASSIUM 4.0 MMOL/L (3.4-5.1); PRE OP SODIUM 140 MMOL/L (135-145); TOTAL CARBON DIOXIDE 25.9 MMOL/L (24-32); eGFR 45 ML/MIN
[~2024-12-04] VITALS: Ht 188 cm; Wt 91.0 kg
[2024-12-04] VITALS (14 sets, daily range): BP systolic 110–178; BP diastolic 68–107; PULSE 84–111; RESP 12–21; TEMP 98; O2SAT 92–98
[~2024-12-04 09:09] MED LIST changes: -ASPI-1071 PO; +ASPI-1475 PO; +ATOR-2 PO; -ATOR10TA PO; +BUPIVACAINE liposomal/PF 13.3 MG/ML 10mL vial IM ONE; +BUPIVAcaine 0.5% inj/PF 60 ML ONE; +CYAN10007 IM; -GEMF600T89 PO; -HYDR-3972 PO; +LIDOcaine 1% 30ml preserv. free vial ONE; +LISI20TA28 PO; -METF-1203 PO; +METF-438 PO; -METO50TA16 PO; +SEMA0.258 SQ; -SILD100T70 PO; -Vitamin B12; +ringers solution, lacted 1,000 ML IV SCH
[2024-12-04] MEDS ORDERED: ringers solution, lacted 1,000 ML IV SCH (09:45)
[2024-12-04] MEDS ORDERED: ondansetron/PF 4mg/2ml inj IV PRN (09:45)
[2024-12-04] MEDS ORDERED: meperidine/PF 25mg/ml syringe IV PRN ×3 (09:45)
[2024-12-04] MEDS ORDERED: enalaprilat 1.25mg/ml 2ml vial IV PRN (09:45)
[2024-12-04] MEDS: ceFAZolin 2gm/dext,iso 50mL 50 ML IV ONE (09:46)
[2024-12-04] MEDS ORDERED: fentaNYL /PF 50mcg/ml 5ml ampule ONE (10:19)
[2024-12-04] MEDS ORDERED: midazolam 1 mg/ML 2ml injection ONE (10:19)
--- NOTE | 2024-12-04 10:24 | HISTORY AND PHYSICAL ---
History & Physical Providers to CC ~ History of Present Illness Reason for Admit\Complaint: Incisional hernia History of Present Illness Interval history and physical exam Patient here today for elective repair of a recurrent incisional hernia This was repaired previously by another surgeon Initial hernias the result of an anterior approach spinal fusion He was a [id number] lower abdominal incisional hernia He was seen in the office greater than 30 days ago (in August) but denies any change in his past medical history Please see previous history and physical exam for all pertinent details He is scheduled for robotic assisted, laparoscopic mesh repair of recurrent incisional hernia Allergies: Coded Allergies: sulfamethoxazole (Verified Allergy, Mild, RASH, HIVES, 12/03/24) trimethoprim (Verified Allergy, Mild, RASH, HIVES, 12/03/24) Home Medications Home Medications Active Reported Ozempic (Semaglutide) 0.25 Mg/0.368 Ml Pen.injctr 0.5 Mg SQ Q7D Aspirin EC (Aspirin) 81 Mg Tablet.dr 1 Tab PO DAILY Metformin HCl 1,000 Mg Tablet 1 Tab PO BID Cyanocobalamin Injection (Cyanocobalamin (Vitamin B-12)) 1,000 Mcg/Ml Vial 1 Ml IM Q7D Lisinopril 20 Mg Tablet 1 Tab PO QAM Atorvastatin Calcium 80 Mg Tablet 1 Tab PO HS Ibuprofen 800 Mg Tablet 1 Tab PO TID PRN Exam Vitals: Vital Signs Date Time Temp Pulse Resp B/P (MAP) Pulse Ox O2 Delivery O2 Flow Rate FiO2 12/04/24 09:56 84 15 98 12/04/24 09:52 Room Air Chest: Lungs clear to auscultation bilaterally Cardiovascular: Regular rate and rhythm without murmurs Abdomen: Soft and nondistended Large reducible mass in the lower abdomen just to the left of midline associated with the surgical scar (paramedian) Extremities: Well-perfused without edema Problems: (1) Recurrent incisional hernia Assessment & Plan: The risks, benefits, and alternatives to a robotic assisted, laparoscopic recurrent incisional hernia repair with mesh were discussed with the patient. Risks include, but are not limited to, bleeding, infection, injury to intra-abdominal structures, hernia recurrence and chronic postoperative pain. Patient verbalized understanding and wishes to proceed with surgery. We will do so today as scheduled BLAIRE OKEEFE MD Dec 04, 2024 10:24
[2024-12-04] MEDS ORDERED: LIDOcaine 2% (20mg/ml) 5ml vial ONE (10:28)
[2024-12-04] MEDS ORDERED: ondansetron/PF 4mg/2ml inj ONE (10:28)
[2024-12-04] MEDS ORDERED: rocuronium 10mg/ml inj IV ONE (10:28)
[2024-12-04] MEDS ORDERED: propofol inj 20 ML IV ONE (10:28)
[2024-12-04] MEDS ORDERED: acetaminophen 1,000mg/100ml IV 100 ML IV ONE (10:31)
[2024-12-04] MEDS: BUPIVAcaine/PF 2.5 mg/ml (0.25%) 30ml vial IJ ONE (10:32)
[2024-12-04] MEDS ORDERED: morphine 10mg/ml inj. ONE (12:13)
[2024-12-04] MEDS ORDERED: labetalol 20mg/4ml (5mg/ml) syringe IV ONE (13:09)
[2024-12-04] MEDS: labetalol 20mg/4ml (5mg/ml) syringe IV PRN (13:44)
[2024-12-04] MEDS: morphine 4 MG/ML inj SYRINge IV PRN (13:47)
[2024-12-04] MEDS ORDERED: oxyCODONE/APAP 5-325mg tablet PO PRN (13:50)
--- NOTE | 2024-12-04 22:45 | OPERATIVE REPORT ---
Operative Report Providers to CC CC: REMINGTON OKEEFE MD ~ Date of Procedure: Dec 04, 2024 Pre-Operative Diagnosis: Recurrent incisional hernia Post-Operative Diagnosis SAME as PRE-Op Procedure Performed Robotic assisted, laparoscopic mesh repair of a recurrent 6 cm incisional hernia Bilateral transversus abdominis plane nerve blocks by injection using 266 mg of Exparel Surgeon: Remington Okeefe MD FACS Porcelain Waxer None Anesthesiologist: Gerardo Tripathi Type of Anesthesia: General Findings: Left lower abdominal incisional hernia through the left rectus abdominis with a massive associated hernia sac Wound class I Complications None Prosthetics\Implants used: 10 x 15 cm ProGrip mesh Estimated Blood Loss: Less than 25 cc Specimen Removed: None Description of Procedure: Patient was brought to the operating room and identified by the nursing staff and the attending physician. Patient was placed supine and general anesthesia was induced. Patient's abdomen was prepped and draped in the standard sterile fashion. Preoperative antibiotics were given. Veress needle technique was used at koroma's point in the abdomen was insufflated without incident. Optical , 12 mm port was placed in the right upper quadrant under laparoscopic visualization. Abdomen was surveyed. There was omentum tented up to the left lower abdominal wall and herniated through an obvious fascial defect. Additional, 8.5 mm robotic trocars were placed in the right lateral and right lower quadrants under laparoscopic visualization. Patient was placed in slight Trendelenburg position with the left side up. The ReSnapi robotic arm was docked to the patient and instruments were guided into the abdomen under laparoscopic visualization. Omentum was mobilized away from the fascial edges and out of a very large hernia sac associated with the fascial defect that appeared to be traversing the left lower rectus abdominis muscle. There was evidence of previous biologic mesh repair consistent with past surgical history. About 6 cm to the right of the fascial defect, a preperitoneal space was developed and dissected towards the defect. The dissection continued above and below the defect. Once the defect edges were encountered, dissection was carried into the hernia space in the entire hernia sac, which was absolutely massive in size, was completely mobilized and reduced. Further lateral dissection continued until there was good circumferential space around the 5-6 cm fascial defect. Hernia defect was then closed with 0 V lock suture; 180 day absorbable. Fascia was reapproximated. A 10 x 15 cm ProGrip mesh was passed into the preperitoneal space and centered at the repaired defect. Peritoneum was then tacked to the mesh and in the abdominal wall closing the space within the inverted hernia sac. Peritoneal rent was closed as were additional rents repaired with a absorbable suture. Bilateral transversus abdominis plane nerve blocks by injection were then placed using a combination of Marcaine and 266 mg of Exparel. Lovely were retrieved. De Barry robotic arm was undocked after instruments were removed. The 12 mm port site was removed and its fascia closed percutaneously using 0 Vicryl suture under laparoscopic visualization. Remaining ports were removed. Skin was closed at all sites with 4-0 Monocryl s utures in a subcuticular fashion. Sterile dressings were applied. Patient was awakened and taken to the postanesthesia care unit in stable condition. Counts repoted as correct: Yes REMINGTON OKEEFE MD Dec 04, 2024 22:45
== END 2024-12-04 15:53 | disposition home or self-care (01) ==
LOC: PAS 09:09
PROVIDERS: ATTEND Surgery
DX: K43.2 Incisional hernia without obstruction or gangrene (principal); E11.9 Type 2 diabetes mellitus without complications; I10 Essential (primary) hypertension; E78.5 Hyperlipidemia, unspecified; Z98.890 Other specified postprocedural states; Z72.89 Other problems related to lifestyle; Z88.8 Allergy status to other drugs, medicaments and biological substances; I25.10 Atherosclerotic heart disease of native coronary artery without angina pectoris; Z88.2 Allergy status to sulfonamides; Z95.5 Presence of coronary angioplasty implant and graft; Z79.82 Long term (current) use of aspirin; F12.90 Cannabis use, unspecified, uncomplicated
CPT/HCPCS: 36415; 49615; 64488; 80053; 82948; 85025; C1781; J0131; J0666; J1100; J2003; J2250; J2270; J2274; J2405; J2704; J2710; J3010; J3490; J7030; J7120; Z7506; Z7508; Z7512; A4215; A4615; A4618